=== PATIENT | female | born 1965 | race Caucasian/White ===

== ENCOUNTER → 2016-10-23 | Outpatient (CLI) | payer MEDICAID | LOC: FIMAGING 10:06 | DX: R10.11 Right upper quadrant pain (principal) ==

== ENCOUNTER 2016-12-18 16:27 | Emergency (ER) | payer MEDICAID ==
--- NOTE | 2016-12-18 17:19 | EDPHY ---
H & P Smoking Status: Former smoker Time Seen by Provider: 12/18/16 16:58 HPI/ROS: CHIEF COMPLAINT: Abdominal pain HISTORY OF PRESENT ILLNESS: 51-year-old female presents to the emergency department by private vehicle complaining of severe right upper quadrant abdominal pain that has been intermittent for the last several months. The patient had cholecystectomy over 15 years ago. She began having right upper quadrant abdominal pain that was intermittent over 6 months ago. She states the pain is becoming more frequent and is lasting longer period of time. It is independent of food. She denies chest pain or difficulty breathing. The pain will radiate up into her right shoulder. No back pain. No urinary symptoms. No fevers or chills. REVIEW OF SYSTEMS: Constitutional: No fever, no chills. Eyes: No double or blurry vision. ENT: No sore throat. Respiratory: No cough, no shortness of breath. Cardiac: No chest pain. Gastrointestinal: Abdominal pain as above. No vomiting or diarrhea. Normal bowel movement today. Genitourinary: No dysuria. Musculoskeletal: No neck or back pain. Skin: No rashes. Neurological: No headache. (Parvin Santos) Past Medical/Surgical History: Cholecystectomy in 1999, orthopedic surgery (Parvin Santos) Social History: Single and lives in [place] (aPrvin Santos) Physical Exam: General Appearance: Alert, no distress. Eyes: Pupils equal and round. Extraocular motions are all intact. ENT: Mouth: Mucous membranes moist. Respiratory: No wheezing, rhonchi, or rales, lungs are clear to auscultation. Cardiovascular: Regular rate and rhythm. Gastrointestinal: Abdomen is obese and soft. Tenderness with palpation especially in the right upper quadrant as well as in the right anterior lower rib. no masses, no rebound or guarding, bowel sounds normal. No CVA tenderness bilaterally. Neurological: Alert and oriented x 3, cranial nerves II through XII grossly intact Skin: Warm and dry, no rashes. Musculoskeletal: Nontender to palpate along the cervical, thoracic or lumbar spine. Neck is supple. Extremities: Full range of motion and no peripheral edema. Psychiatric: Patient is oriented X 3, there is no agitation. (Parvin Santos) Constitutional: Initial Vital Signs Temperature (C) 36.7 C 12/18/16 16:31 Heart Rate 68 12/18/16 16:31 Respiratory Rate 18 12/18/16 16:31 Blood Pressure 155/78 H 12/18/16 16:31 O2 Sat (%) 98 12/18/16 16:31 O2 Delivery Mode Room Air Allergies/Adverse Reactions: IV CONTRAST Allergy (Uncoded 06/29/11 13:14) Home Medications: Medication Instructions Recorded Fluticasone/Salmeter 500/50Mcg 1 inh IH DAILY 06/29/11 [Advair 500/50] LEVOTHYROXINE SODIUM [Synthroid] 75 mcg PO DAILY 06/29/11 Medical Decision Making - Diagnostics Imaging: Discussed imaging studies w/ faculty i on call medical assistant Radiologist - Diagnostics Imaging Results: Imaging Impressions Abdomen/Pelvis CT 12/18/16 17:25 Impression: 1. No intraabdominal mass, lymphadenopathy, or localized inflammatory process. 2. Benign hepatic cyst is unchanged 2014. 3. Probably benign infectious or inflammatory process in the right middle lobe. Recommend follow-up noncontrast CT chest in six months to assure resolution. Findings discussed with Emergency Department Physician Dipper Operator, Parvin Santos, on December 18, 2016 at 1845. ED Course/Re-evaluation: 51-year-old female presents to the emergency department with right upper quadrant abdominal pain that has been intermittent for the last 6-8 months or more. Laboratory studies are unremarkable including normal LFTs and normal lipase. The patient has a history of IV contrast dye allergy which includes edema and redness. I spoke with the radiologist and he did not feel comfortable giving her premedication with Benadryl and steroids. He preferred to have the patient have a noncontrast CT scan of her abdomen and pelvis. This was discussed with the patient who verbalized understanding and agreed. CT imaging of the abdomen pelvis was normal. She has a stable liver cyst as seen on previous MRI from 2015. She does have ground-glass nodules noted in the right middle lobe which will require follow-up noncontrast CT scan of her chest in 6 months. This was discussed with the patient the patient verbalized understanding and agreed. Patient was given IV Toradol with some relief. She feels comfortable being discharged home. I encouraged close follow-up with melon packer. She was given the name of the provider structural steel erection supervisor, Dr. Tyson South. I encouraged her return to the emergency department she developed fever, vomiting or if she had any change in symptoms or felt worse in any way. I doubt this patient has pulmonary embolism. She has reproducible pain with palpation in the right upper quadrant of her abdomen. I do not think further imaging studies are indicated in the emergency department today. She is tolerating p.o. fluids. The case was discussed with Dr. Dawson Uribe, secondary supervising physician who did not directly evaluate the patient but agrees with treatment and plan. (DinoraParvin weinstein) Differential Diagnosis: Including but not limited to choledocholithiasis, pancreatitis, GERD, peptic ulcer disease, kidney stone, diverticulitis, obstruction, hernia (Parvin Santos) - Data Points Laboratory Results: Laboratory Results 12/18/16 17:15 12/18/16 17:15 12/18/16 12/18/16 17:15 17:15 WBC 11.08 10^3/uL H 10^3/uL (3.80-9.50) RBC 5.18 10^6/uL 10^6/uL (4.18-5.33) Hgb 14.4 g/dL g/dL (12.6-16.3) Hct 44.5 % % (38.0-47.0) MCV 85.9 fL fL (81.5-99.8) MCH 27.8 pg L pg (27.9-34.1) MCHC 32.4 g/dL g/dL (32.4-36.7) RDW 14.1 % % (11.5-15.2) Plt Count 279 10^3/uL 10^3/uL (150-400) MPV 9.2 fL fL (8.7-11.7) Neut % (Auto) 72.5 % % (39.3-74.2) Lymph % (Auto) 22.1 % % (15.0-45.0) [place] % (Auto) 4.2 % L % (4.5-13.0) Eos % (Auto) 0.7 % % (0.6-7.6) Baso % (Auto) 0.3 % % (0.3-1.7) Nucleat RBC Rel Count 0.0 % % (0.0-0.2) Absolute Neuts (auto) 8.04 10^3/uL H 10^3/uL (1.70-6.50) Absolute Lymphs (auto) 2.45 10^3/uL 10^3/uL (1.00-3.00) Absolute Monos (auto) 0.46 10^3/uL 10^3/uL (0.30-0.80) Absolute Eos (auto) 0.08 10^3/uL 10^3/uL (0.03-0.40) Absolute Basos (auto) 0.03 10^3/uL 10^3/uL (0.02-0.10) Absolute Nucleated RBC 0.00 10^3/uL 10^3/uL (0-0.01) Immature Gran % 0.2 % % (0.0-1.1) Immature Gran # 0.02 10^3/uL 10^3/uL (0.00-0.10) Sodium 138 mEq/L mEq/L (134-144) Potassium 4.5 mEq/L mEq/L (3.5-5.2) Chloride 105 mEq/L mEq/L (97-110) Carbon Dioxide 20 mEq/l L mEq/l (22-31) Anion Gap 13 mEq/L mEq/L (8-16) BUN 18 mg/dL mg/dL (7-23) Creatinine 0.9 mg/dL mg/dL (0.6-1.0) Estimated GFR > 60 Glucose 90 mg/dL mg/dL (70-100) Calcium 9.5 mg/dL mg/dL (8.5-10.4) Total Bilirubin 0.8 mg/dL mg/dL (0.1-1.4) Conjugated Bilirubin 0.4 mg/dL mg/dL (0.0-0.5) Unconjugated Bilirubin 0.4 mg/dL mg/dL (0.0-1.1) AST 34 IU/L IU/L (14-46) ALT 13 IU/L IU/L (9-52) Alkaline Phosphatase 124 IU/L IU/L (38-126) Total Protein 7.6 g/dL g/dL (6.3-8.2) Albumin 4.0 g/dL g/dL (3.5-5.0) Lipase 166 IU/L IU/L (23-300) Medications Given: Discontinued Medications Hydromorphone HCl (Dilaudid) 1 mg IVP EDNOW ONE Stop: 12/18/16 17:46 Last Admin: 12/18/16 17:57 Dose: 1 mg Ketorolac Tromethamine (Toradol) 30 mg IVP EDNOW ONE Stop: 12/18/16 18:49 Last Admin: 12/18/16 18:57 Dose: 30 mg Departure - Departure Disposition: Home, Routine, Self-Care Clinical Impression: Abdominal pain Qualifiers: Abdominal location: right upper quadrant Qualified Code(s): R10.11 - Right upper quadrant pain Condition: Good Instructions: Chronic Abdominal Pain (ED) Additional Instructions: Abdominal Pain: Return to the Emergency Department immediately for increasing pain, fever, vomiting, or if not completely better in 8-12 hours. Call tomorrow to arrange a follow-up appointment with the melon packer on- call, Dr. Tyson South. The radiologist recommended that you have follow-up noncontrast CT scan of the chest in 6 months to further evaluate the nodules noted in the right middle lobe of your lung. Referrals: Tyson South MD [[facility] – [place] Primary Care Provider] - 5-7 days, call for appt. ( Cork Mixer on-call)
[2016-12-18 17:23] LABS: % IMMATURE GRANULYOCYTES 0.2 % (0.0-1.1); ABSOLUTE IMMATURE GRANULOCYTES 0.02 10^3/uL (0.00-0.10); ADD DIFF? NO; ADD MORPH? NO; ADD SCAN? NO; ATYPICAL LYMPHOCYTE FLAG 0 (0-99); FRAGMENT RBC FLAG 0 (0-99); HEMATOCRIT 44.5 % (38.0-47.0); HEMOGLOBIN 14.4 g/dL (12.6-16.3); LEFT SHIFT FLG 0 (0-99); LIPEMIA HEMOLYSIS FLAG 80 (0-99); MEAN CELL HEMOGLOBIN 27.8 pg (27.9-34.1); MEAN CELL HEMOGLOBIN CONCENTR. 32.4 g/dL (32.4-36.7); MEAN CELL VOLUME 85.9 fL (81.5-99.8); MEAN PLATELET VOLUME 9.2 fL (8.7-11.7); PLATELET CLUMPS FLAG 40 (0-99); PLATELET COUNT 279 10^3/uL (150-400); RED BLOOD CELL COUNT 5.18 10^6/uL (4.18-5.33); RED CELL DISTRIBUTION WIDTH 14.1 % (11.5-15.2)
[2016-12-18] MEDS ORDERED: HYDROmorphONE/DILAUDID 1 MG/ML SYR IVP ONE (17:45)
[2016-12-18 17:54] LABS: ALANINE AMINOTRANSFERASE 13 IU/L (9-52); ALKALINE PHOSPHATASE 124 IU/L (38-126); ANION GAP 13 mEq/L (8-16); ASPARTATE AMINOTRANSFERASE 34 IU/L (14-46); BILIRUBIN,TOTAL 0.8 mg/dL (0.1-1.4); BILIRUBIN-CONJUGATED 0.4 mg/dL (0.0-0.5); BILIRUBIN-UNCONJUGATED 0.4 mg/dL (0.0-1.1); CALCIUM 9.5 mg/dL (8.5-10.4); CARBON DIOXIDE 20 mEq/l (22-31); CHLORIDE 105 mEq/L (97-110); CREATININE 0.9 mg/dL (0.6-1.0); GLOMERULAR FILTRATION RATE > 60; GLUCOSE 90 mg/dL (70-100); POTASSIUM 4.5 mEq/L (3.5-5.2); SODIUM 138 mEq/L (134-144); TOTAL PROTEIN 7.6 g/dL (6.3-8.2)
[2016-12-18] MEDS ORDERED: KETOROLAC 30 MG/1 ML SDV IVP ONE (18:48)
[2016-12-18 19:12] VITALS: BP 126/67; PULSE 71; RESP 16; TEMP 97.9; O2SAT 93
== END 2016-12-18 19:37 | disposition home or self-care (01) ==
LOC: EDUNIT#
DX: R10.11 Right upper quadrant pain (principal); Z87.891 Personal history of nicotine dependence; Z90.49 Acquired absence of other specified parts of digestive tract
CPT/HCPCS: 96374; J1170; J1885

== ENCOUNTER → 2017-06-28 | Outpatient (CLI) | payer MEDICAID | LOC: FIMAGING 09:28 | PROVIDERS: ATTEND Family Medicine | DX: M23.221 Derangement of posterior horn of medial meniscus due to old tear or injury, right knee (principal); M23.251 Derangement of posterior horn of lateral meniscus due to old tear or injury, right knee; M23.222 Derangement of posterior horn of medial meniscus due to old tear or injury, left knee; M23.242 Derangement of anterior horn of lateral meniscus due to old tear or injury, left knee ==

== ENCOUNTER → 2018-05-29 | Outpatient (CLI) | payer MEDICAID | LOC: FIMAGING 09:07 | PROVIDERS: ATTEND Family Medicine | DX: Z12.31 Encounter for screening mammogram for malignant neoplasm of breast (principal) ==